=== PATIENT | female | born 1950 | race Two or more races ===

== ENCOUNTER 2016-12-25 22:57 | Emergency (ER) | payer MEDICARE, OTHER ==
[~2016-12-25] VITALS: Ht 167.6 cm; Wt 100.7 kg
--- NOTE | 2016-12-25 23:12 | NUR ---
PT TO ER BED 09. C/O RENETTA PAIN S/P MISSED A STEP AND FALL. ABLE TO MOVE AFFECTED EXTREMITY. NO HEAD TRAUMA. AWAITING MD NARVAEZ.
[2016-12-25] MEDS ORDERED: ONDANSETRON 4 MG TAB.RAPDIS ONE (23:45)
[2016-12-25] MEDS ORDERED: HYDROCODONE/APAP 10/325MG 1 EA TABLET ONE (23:45)
[2016-12-26] MEDS ORDERED: HYDROCODONE/APAP 10/325MG 1 EA TABLET PO ONE
[2016-12-26] MEDS ORDERED: ONDANSETRON 4 MG TAB.RAPDIS SL ONE
[2016-12-26 00:58] VITALS: BP 145/72
--- NOTE | 2016-12-26 00:58 | NUR ---
Patient discharged to home in stable condition. Written and verbal after care instructions given. Patient verbalizes understanding of instruction. Patient is ambulatory with steady gait. No further complaints.
== END 2016-12-26 00:59 | disposition home or self-care (01) ==
LOC: ER 22:58
DX: M25.511 Pain in right shoulder (principal); S40.011A Contusion of right shoulder, initial encounter; I10 Essential (primary) hypertension; I48.91 Unspecified atrial fibrillation; W01.0XXA Fall on same level from slipping, tripping and stumbling without subsequent striking against object, initial encounter; Y93.89 Activity, other specified; Y92.89 Other specified places as the place of occurrence of the external cause; Y99.9 Unspecified external cause status
CPT/HCPCS: 73060-TC; A4606; Q0162; Z7610

== ENCOUNTER 2017-11-11 13:03 | Emergency (ER) | payer MEDICARE, OTHER ==
[~2017-11-11] VITALS: Ht 167.6 cm; Wt 83.9 kg
--- NOTE | 2017-11-11 13:25 | NUR ---
KATALINA FROM HOME DT DIZZINESS. PATIENT IS AWAKE AND ALERT, APPEARS IN NO APPARENT DISTRESS. RESPIRATION EVEN AND UNLABORED. SKIN IS WARM TO TOUCH AND NON DIAPHORETIC, PATIENT IS AFEBRILE. DENIES DIZZINESS AT THIS TIME.VSS
[2017-11-11] MEDS ORDERED: IV NS 0.9% 500 ML BAG IV ONE (13:30)
[2017-11-11 13:31] LABS: BASOPHILS % (AUTO) 0.4 % (0.0-2.0); EOSINOPHILS % (AUTO) 0.9 % (0.0-6.0); HEMATOCRIT 38 % (33-45); HEMOGLOBIN 12.8 g/dL (11.5-14.8); LYMPHOCYTES # (AUTO) 0.7 /CMM (0.8-4.8); LYMPHOCYTES % (AUTO) 15.9 % (20.0-44.0); MEAN CORPUSCULAR HEMOGLOBIN 30 PG (26.0-33.0); MEAN CORPUSCULAR HGB CONC 34 g/dl (31.0-36.0); MEAN CORPUSCULAR VOLUME 89 fL (82-100); MONOCYTES # (AUTO) 0.6 /CMM (0.1-1.30); MONOCYTES % (AUTO) 12.1 % (2.0-12.0); NEUTROPHILS # (AUTO) 3.3 /CMM (1.8-8.9); NEUTROPHILS % (AUTO) 70.7 % (43.0-81.0); PLATELET COUNT (AUTO) 149 /CMM (150-450); RED BLOOD CELL COUNT(AUTO) 4.27 MIL/uL (4.0-5.2); WHITE BLOOD COUNT (AUTO) 4.7 K/uL (4.3-11.0)
[2017-11-11 13:47] LABS: ALANINE AMINOTRANSFERASE 36 U/L (12-78); ALBUMIN 2.9 g/dL (3.4-5.0); ALKALINE PHOSPHATASE 101 U/L (46-116); ASPARTATE AMINOTRANSFERASE 24 U/L (15-37); BILIRUBIN,DIRECT 0.1 mg/dL (0.0-0.2); BILIRUBIN,TOTAL 0.2 mg/dL (0.2-1.0); CALCIUM, SERUM 8.7 mg/dL (8.5-10.1); CARBON DIOXIDE 29 mmol/L (21-32); CHLORIDE 102 mmol/L (98-107); CREATININE 1.1 mg/dL (0.6-1.3); GLUCOSE 137 mg/dL (74-106); POTASSIUM 4.2 mmol/L (3.5-5.1); SODIUM SERUM 139 mmol/L (136-145); UREA NITROGEN, BLOOD 20 mg/dL (7-18)
[2017-11-11 13:49] LABS: TROPONIN I < 0.017 ng/mL (0.00-0.056)
[2017-11-11] MEDS ORDERED: IV NS 0.9% 1,000 ML BAG IV ONE (15:00)
[2017-11-11 15:56] VITALS: BP 105/63
--- NOTE | 2017-11-11 15:56 | NUR ---
Patient discharged to home in stable condition. Written and verbal after care instructions given. Patient verbalizes understanding of instruction.IV removed. Catheter intact and site benign. Pressure and 4x4 applied to site. No bleeding noted.
== END 2017-11-11 15:56 | disposition home or self-care (01) ==
LOC: ER 13:05
DX: E86.0 Dehydration (principal); R55 Syncope and collapse; R42 Dizziness and giddiness; E78.00 Pure hypercholesterolemia, unspecified; J11.1 Influenza due to unidentified influenza virus with other respiratory manifestations; I10 Essential (primary) hypertension; I48.91 Unspecified atrial fibrillation; Z95.0 Presence of cardiac pacemaker; Z90.710 Acquired absence of both cervix and uterus; Z90.89 Acquired absence of other organs
CPT/HCPCS: 36415; 71045; 80048; 80076; 84484; 85025; 85730; 93005; 96360; 99285; A4606; J7030; Z7610